=== PATIENT | female | born 1960 | race Caucasian/White ===

== ENCOUNTER → 2023-10-07 16:13 | Outpatient (REF) | payer OTHER, SELFPAY | LOC: HWWDC 16:13 | PROVIDERS: ATTENDING PHYSICIAN Family Medicine | DX: Z12.31 Encounter for screening mammogram for malignant neoplasm of breast (principal) | CPT/HCPCS: 77063; 77067 ==

== ENCOUNTER → 2025-01-12 06:44 | Outpatient (REF) | payer OTHER, SELFPAY | LOC: RAD 06:44 | PROVIDERS: ATTENDING PHYSICIAN Obstetrics & Gynecology; FAMILY PHYSICIAN Family Medicine | DX: R31.21 Asymptomatic microscopic hematuria (principal) | CPT/HCPCS: 74178; Q9967 ==